=== PATIENT | male | born 1980 | race Caucasian/White ===

== ENCOUNTER 2016-10-22 08:07 | Emergency (ER) | payer SELFPAY ==
[~2016-10-22] VITALS: Ht 170.2 cm; Wt 104.5 kg
[2016-10-22] MEDS ORDERED: METHOCARBAMOL 500 MG TABLET PO ONE (10:30)
[2016-10-22] MEDS ORDERED: KETOROLAC TROMETHAMINE 60 MG/2 ML VIAL IM ONE (10:30)
[2016-10-22 11:18] VITALS: BP 141/55
== END 2016-10-22 12:12 | disposition home or self-care (01) ==
LOC: EMS 08:11
DX: S16.1XXA Strain of muscle, fascia and tendon at neck level, initial encounter (principal); S46.912A Strain of unspecified muscle, fascia and tendon at shoulder and upper arm level, left arm, initial encounter; R03.0 Elevated blood-pressure reading, without diagnosis of hypertension; V49.59XA Passenger injured in collision with other motor vehicles in traffic accident, initial encounter; Y93.89 Activity, other specified; Y92.89 Other specified places as the place of occurrence of the external cause; Y99.9 Unspecified external cause status
CPT/HCPCS: 96372; 99283; J1885